=== PATIENT | male | born 1975 | race Caucasian/White ===

== ENCOUNTER 2018-06-11 15:31 | Inpatient (IN) | payer MEDICARE, MEDICAID ==
[~2018-06-11] VITALS: Ht 165.1 cm; Wt 85.6 kg
--- NOTE | 2018-06-11 15:40 | NUR ---
EKG 1530
[2018-06-11 16:14] LABS: BASOPHILS # (AUTO) 0.1 X10'3 (0-0.2); BASOPHILS % (AUTO) 0.7 % (0-1); EOSINOPHILS # (AUTO) 0.2 X10'3 (0-0.9); EOSINOPHILS % (AUTO) 1.9 % (0-6); HEMATOCRIT 48.6 % (42.0-52.0); LYMPHOCYTES # (AUTO) 2.2 X10'3 (1.1-4.8); MEAN CORPUSCULAR HGB CONC 32.9 g/dL (33.0-36.5); MEAN CORPUSCULAR VOLUME 82.1 FL (78-98); MEAN PLATELET VOLUME 9.8 FL (7.4-10.4); MONOCYTES # (AUTO) 0.9 X10'3 (0-0.9); MONOCYTES % (AUTO) 6.8 % (2-12); NEUTROPHILS # (AUTO) 9.1 X10'3 (1.8-7.7); NEUTROPHILS % (AUTO) 72.6 % (42-75); PLATELET COUNT 251 X10'3 (140-440); RED BLOOD COUNT 5.92 X10'6 (4.70-6.10); RED CELL DISTRIBUTION WIDTH 16.5 % (11.5-14.5); WHITE BLOOD COUNT 12.5 X10'3 (4.5-11.0)
[2018-06-11 16:30] LABS: ALANINE AMINOTRANSFERASE 53 U/L (12-78); ALBUMIN 3.7 G/DL (3.4-5.0); ALBUMIN/GLOBULIN RATIO 0.8 (1.1-1.5); ALKALINE PHOSPHATASE 131 IU/L (46-116); ANION GAP 10 (8-16); ASPARTATE AMINO TRANSFERASE 42 U/L (10-37); BILIRUBIN,TOTAL 0.5 MG/DL (0.1-1.0); BLOOD UREA NITROGEN 13 MG/DL (7-18); CALCIUM 8.8 MG/DL (8.5-10.1); CHLORIDE 104 MMOL/L (99-107); CREATININE 1.08 MG/DL (0.60-1.10); GLUCOSE 96 MG/DL (70-104); POTASSIUM 3.9 MMOL/L (3.5-5.1); SODIUM 140 MMOL/L (135-145); TOTAL CARBON DIOXIDE 26.1 MMOL/L (24-32); TOTAL PROTEIN 8.3 G/DL (6.4-8.2); eGFR 74 ML/MIN
[2018-06-11 16:38] LABS: PARTIAL THROMBOPLASTIN TIME 30 SECONDS (22-32); PROTHROMBIN TIME 10.3 SECONDS (9.0-12.0)
[2018-06-11] MEDS ORDERED: LEVO150T PO (19:42)
[2018-06-11] MEDS ORDERED: ALBU18HF2 INH (19:43)
[2018-06-11] MEDS ORDERED: mag hydrox/Alum hydrox/simeth 30ml oral suspension PO PRN (20:15)
[2018-06-11] MEDS ORDERED: magnesium hydroxide 30ml (MOM) UD suspension PO PRN (20:15)
[2018-06-11] MEDS ORDERED: albuterol 2.5 MG/3 ML nebule NEB PRN (20:15)
[2018-06-11] MEDS ORDERED: ondansetron/PF 4mg/2ml inj IV PRN (20:15)
[2018-06-11] MEDS ORDERED: HYDROcodone/acetaminophen 5mg/325mg tablet PO PRN (20:15)
[2018-06-11] MEDS ORDERED: acetaminophen 325mg tablet PO PRN (20:15)
[2018-06-11] MEDS: methylPREDNISolone sod succ 125mg/2ml vial IV SCH (20:53)
[2018-06-11] MEDS: levoFLOXACIN 750MG TABLET PO SCH (20:53)
[2018-06-11] MEDS ORDERED: temazepam 15mg capsule PO PRN (21:00)
[2018-06-11] MEDS: ipratropium/albuterol 3ml nebule NEB SCH (21:53)
--- NOTE | 2018-06-11 22:15 | NUR ---
Patient in room PCU 3026. I have received report from David GEORGES and had the opportunity to ask questions and assume patient care.
--- NOTE | 2018-06-11 22:25 | NUR ---
Patient arrived to room 3026B via gurney from the ER. All belongings on person. Was able to easily ambulate from gurney to bed. Patient oriented to room, call light, plan of care and all answers were answered. Tele monitor put on and vital signs stable. No complaints of chest pain or any pain.
[2018-06-11 22:30] VITALS: BP 142/79
[2018-06-12 02:00] VITALS: BP 105/65
[2018-06-12] MEDS: ipratropium/albuterol 3ml nebule NEB SCH ×4 (03:42→20:27)
[2018-06-12 04:46] LABS: BASOPHILS % (AUTO) 0.3 % (0-1); EOSINOPHILS # (AUTO) 0.1 X10'3 (0-0.9); EOSINOPHILS % (AUTO) 1.3 % (0-6); HEMATOCRIT 49.3 % (42.0-52.0); HEMOGLOBIN 16.4 g/dl (14.0-17.9); LYMPHOCYTES # (AUTO) 0.8 X10'3 (1.1-4.8); LYMPHOCYTES % (AUTO) 9.5 % (21-51); MEAN CORPUSCULAR HEMOGLOBIN 27.3 PG (27.0-31.0); MEAN CORPUSCULAR HGB CONC 33.3 g/dL (33.0-36.5); MEAN CORPUSCULAR VOLUME 81.8 FL (78-98); MEAN PLATELET VOLUME 10.5 FL (7.4-10.4); MONOCYTES # (AUTO) 0.1 X10'3 (0-0.9); MONOCYTES % (AUTO) 1.1 % (2-12); NEUTROPHILS # (AUTO) 7.4 X10'3 (1.8-7.7); NEUTROPHILS % (AUTO) 87.8 % (42-75); PLATELET COUNT 228 X10'3 (140-440); RED BLOOD COUNT 6.02 X10'6 (4.70-6.10); RED CELL DISTRIBUTION WIDTH 16.7 % (11.5-14.5); WHITE BLOOD COUNT 8.4 X10'3 (4.5-11.0)
[2018-06-12 04:58] LABS: ALANINE AMINOTRANSFERASE 41 U/L (12-78); ALBUMIN 3.5 G/DL (3.4-5.0); ALBUMIN/GLOBULIN RATIO 0.8 (1.1-1.5); ALKALINE PHOSPHATASE 122 IU/L (46-116); ANION GAP 10 (8-16); ASPARTATE AMINO TRANSFERASE 28 U/L (10-37); BILIRUBIN,TOTAL 0.6 MG/DL (0.1-1.0); BLOOD UREA NITROGEN 12 MG/DL (7-18); BUN/CREATININE RATIO 10.4 (5.4-32.0); CALCIUM 9.3 MG/DL (8.5-10.1); CHLORIDE 106 MMOL/L (99-107); CREATININE 1.15 MG/DL (0.60-1.10); GLUCOSE 159 MG/DL (70-104); POTASSIUM 4.4 MMOL/L (3.5-5.1); SODIUM 141 MMOL/L (135-145); TOTAL CARBON DIOXIDE 25.4 MMOL/L (24-32); TOTAL PROTEIN 8.1 G/DL (6.4-8.2); eGFR 69 ML/MIN
[2018-06-12 06:00] VITALS: BP 117/66
--- NOTE | 2018-06-12 06:15 | NUR ---
Problems reprioritized. Patient report given, questions answered & plan of care reviewed with Alejandra GEORGES.
[2018-06-12 06:21] LABS: LARGE PLATELETS FEW; PLATELET ESTIMATE NORMAL
--- NOTE | 2018-06-12 06:48 | NUR ---
Patient in room PCU 3026. I have received report from Karen GEORGES and had the opportunity to ask questions and assume patient care.
[2018-06-12] MEDS: methylPREDNISolone sod succ 125mg/2ml vial IV SCH ×3 (07:31→22:24)
[2018-06-12] MEDS: levoTHYROXINE 75mcg tablet PO SCH (07:31)
[2018-06-12 11:00] VITALS: BP 121/59
[2018-06-12] MEDS: levoFLOXACIN 750MG TABLET PO SCH (11:24)
--- NOTE | 2018-06-12 13:32 | NUR ---
O2 Sat at rest on room air:84 % If below 89%: Recovery O2 Sat at rest on 3 LPM:92%:___% via nasal cannula. No further documentation is necessary.
[2018-06-12 15:00] VITALS: BP 118/57
[2018-06-12] MEDS: acetaminophen 325mg tablet PO PRN ×2 (16:27→22:32)
--- NOTE | 2018-06-12 18:16 | NUR ---
Problems reprioritized. Patient report given, questions answered & plan of care reviewed with Karen GEORGES.
--- NOTE | 2018-06-12 18:23 | NUR ---
Problems reprioritized. Patient report given, questions answered & plan of care reviewed with Karen GEORGES.
[2018-06-12 19:00] VITALS: BP 120/75
[2018-06-12] MEDS: lactobacillus rhamnosus 10,000 MMU CELLS/CAPSULE PO SCH (22:25)
[2018-06-12 23:00] VITALS: BP 114/60
[2018-06-13] MEDS: ipratropium/albuterol 3ml nebule NEB SCH ×4 (03:00→20:58)
[2018-06-13 05:55] LABS: BASOPHILS % (AUTO) 0.1 % (0-1); EOSINOPHILS # (AUTO) 0.2 X10'3 (0-0.9); EOSINOPHILS % (AUTO) 1.1 % (0-6); HEMATOCRIT 44.5 % (42.0-52.0); HEMOGLOBIN 14.6 g/dl (14.0-17.9); LYMPHOCYTES # (AUTO) 1.2 X10'3 (1.1-4.8); LYMPHOCYTES % (AUTO) 6.9 % (21-51); MEAN CORPUSCULAR HEMOGLOBIN 26.9 PG (27.0-31.0); MEAN CORPUSCULAR HGB CONC 32.8 g/dL (33.0-36.5); MEAN CORPUSCULAR VOLUME 82.2 FL (78-98); MEAN PLATELET VOLUME 10.4 FL (7.4-10.4); MONOCYTES # (AUTO) 0.4 X10'3 (0-0.9); MONOCYTES % (AUTO) 2.5 % (2-12); NEUTROPHILS # (AUTO) 15.4 X10'3 (1.8-7.7); NEUTROPHILS % (AUTO) 89.4 % (42-75); PLATELET COUNT 240 X10'3 (140-440); RED BLOOD COUNT 5.42 X10'6 (4.70-6.10); RED CELL DISTRIBUTION WIDTH 17.4 % (11.5-14.5); WHITE BLOOD COUNT 17.2 X10'3 (4.5-11.0)
[2018-06-13 06:00] VITALS: BP 106/66
[2018-06-13 06:20] LABS: ALBUMIN 3.2 G/DL (3.4-5.0); ANION GAP 12 (8-16); BLOOD UREA NITROGEN 19 MG/DL (7-18); BUN/CREATININE RATIO 17.1 (5.4-32.0); CALCIUM 9.4 MG/DL (8.5-10.1); CHLORIDE 104 MMOL/L (99-107); CREATININE 1.11 MG/DL (0.60-1.10); GLUCOSE 158 MG/DL (70-104); POTASSIUM 4.6 MMOL/L (3.5-5.1); SODIUM 140 MMOL/L (135-145); TOTAL CARBON DIOXIDE 24.3 MMOL/L (24-32); eGFR 72 ML/MIN
[2018-06-13] MEDS: levoTHYROXINE 75mcg tablet PO SCH (08:09)
[2018-06-13] MEDS: lactobacillus rhamnosus 10,000 MMU CELLS/CAPSULE PO SCH ×2 (08:09→21:43)
[2018-06-13] MEDS: methylPREDNISolone sod succ 125mg/2ml vial IV SCH ×3 (08:10→21:43)
[2018-06-13 11:00] VITALS: BP 107/71
[2018-06-13] MEDS: levoFLOXACIN 750MG TABLET PO SCH (12:15)
--- NOTE | 2018-06-13 18:27 | NUR ---
Problems reprioritized. Patient report given, questions answered & plan of care reviewed with JOSÉ MANUEL Steve.
[2018-06-13 19:00] VITALS: BP 124/75
[2018-06-13 23:00] VITALS: BP 112/69
[2018-06-14 03:00] VITALS: BP 109/59
[2018-06-14] MEDS: ipratropium/albuterol 3ml nebule NEB SCH ×4 (03:00→20:30)
[2018-06-14 06:04] LABS: BASOPHILS % (AUTO) 0.1 % (0-1); EOSINOPHILS # (AUTO) 0.2 X10'3 (0-0.9); EOSINOPHILS % (AUTO) 1.2 % (0-6); HEMATOCRIT 47.1 % (42.0-52.0); HEMOGLOBIN 15.4 g/dl (14.0-17.9); LYMPHOCYTES # (AUTO) 1.3 X10'3 (1.1-4.8); LYMPHOCYTES % (AUTO) 6.6 % (21-51); MEAN CORPUSCULAR HGB CONC 32.6 g/dL (33.0-36.5); MEAN CORPUSCULAR VOLUME 82.8 FL (78-98); MEAN PLATELET VOLUME 9.9 FL (7.4-10.4); MONOCYTES # (AUTO) 0.7 X10'3 (0-0.9); MONOCYTES % (AUTO) 3.5 % (2-12); NEUTROPHILS % (AUTO) 88.6 % (42-75); PLATELET COUNT 259 X10'3 (140-440); RED BLOOD COUNT 5.69 X10'6 (4.70-6.10); RED CELL DISTRIBUTION WIDTH 17.4 % (11.5-14.5); WHITE BLOOD COUNT 19.2 X10'3 (4.5-11.0)
--- NOTE | 2018-06-14 06:10 | NUR ---
Patient in room PCU 3024A. I have received report from Wili Del Real, and had the opportunity to ask questions and assume patient care.
[2018-06-14 06:21] LABS: ALBUMIN 3.2 G/DL (3.4-5.0); ANION GAP 9 (8-16); BLOOD UREA NITROGEN 19 MG/DL (7-18); CALCIUM 9.6 MG/DL (8.5-10.1); CHLORIDE 106 MMOL/L (99-107); GLUCOSE 147 MG/DL (70-104); POTASSIUM 4.3 MMOL/L (3.5-5.1); SODIUM 143 MMOL/L (135-145); TOTAL CARBON DIOXIDE 27.7 MMOL/L (24-32); eGFR 81 ML/MIN
--- NOTE | 2018-06-14 06:44 | NUR ---
Problems reprioritized. Patient report given, questions answered & plan of care reviewed with JOSÉ MANUEL Ram
[2018-06-14] MEDS: levoTHYROXINE 75mcg tablet PO SCH (08:13)
[2018-06-14] MEDS: methylPREDNISolone sod succ 125mg/2ml vial IV SCH ×2 (08:13→19:32)
[2018-06-14] MEDS: lactobacillus rhamnosus 10,000 MMU CELLS/CAPSULE PO SCH ×2 (08:13→19:32)
[2018-06-14 11:00] VITALS: BP 127/56
[2018-06-14] MEDS: levoFLOXACIN 750MG TABLET PO SCH (11:52)
[2018-06-14 15:00] VITALS: BP 115/59
--- NOTE | 2018-06-14 18:14 | NUR ---
Orientee documentation: I have reviewed and agree with all interventions, assessments performed and documented by JOSÉ MANUEL Slater.
--- NOTE | 2018-06-14 18:14 | NUR ---
Problems reprioritized. Patient report given, questions answered & plan of care reviewed with JOSÉ MANUEL Urena.
[2018-06-14 19:00] VITALS: BP 105/75
[2018-06-14 23:00] VITALS: BP 99/55
[2018-06-15] MEDS: ipratropium/albuterol 3ml nebule NEB SCH ×3 (02:54→15:00)
[2018-06-15 03:00] VITALS: BP 107/68
[2018-06-15 05:39] LABS: ALBUMIN 3.1 G/DL (3.4-5.0); ANION GAP 9 (8-16); BLOOD UREA NITROGEN 20 MG/DL (7-18); BUN/CREATININE RATIO 20.6 (5.4-32.0); CALCIUM 9.2 MG/DL (8.5-10.1); CHLORIDE 105 MMOL/L (99-107); CREATININE 0.97 MG/DL (0.60-1.10); GLUCOSE 147 MG/DL (70-104); POTASSIUM 4.1 MMOL/L (3.5-5.1); SODIUM 142 MMOL/L (135-145); TOTAL CARBON DIOXIDE 27.7 MMOL/L (24-32); eGFR 84 ML/MIN
[2018-06-15 05:45] LABS: BASOPHILS % (AUTO) 0.1 % (0-1); EOSINOPHILS % (AUTO) 0.1 % (0-6); HEMATOCRIT 48.6 % (42.0-52.0); HEMOGLOBIN 15.9 g/dl (14.0-17.9); LYMPHOCYTES # (AUTO) 1.5 X10'3 (1.1-4.8); LYMPHOCYTES % (AUTO) 9.4 % (21-51); MEAN CORPUSCULAR HGB CONC 32.7 g/dL (33.0-36.5); MEAN CORPUSCULAR VOLUME 82.8 FL (78-98); MEAN PLATELET VOLUME 10.5 FL (7.4-10.4); MONOCYTES # (AUTO) 0.6 X10'3 (0-0.9); NEUTROPHILS # (AUTO) 13.4 X10'3 (1.8-7.7); NEUTROPHILS % (AUTO) 86.4 % (42-75); PLATELET COUNT 261 X10'3 (140-440); RED BLOOD COUNT 5.87 X10'6 (4.70-6.10); WHITE BLOOD COUNT 15.5 X10'3 (4.5-11.0)
--- NOTE | 2018-06-15 06:20 | NUR ---
Patient in room PCU 3026. I have received report from JOSÉ MANUEL Urena and had the opportunity to ask questions and assume patient care.
[2018-06-15 07:00] VITALS: BP 122/79
[2018-06-15] MEDS: levoTHYROXINE 75mcg tablet PO SCH (08:01)
[2018-06-15] MEDS: lactobacillus rhamnosus 10,000 MMU CELLS/CAPSULE PO SCH (08:01)
[2018-06-15] MEDS: methylPREDNISolone sod succ 125mg/2ml vial IV SCH (08:02)
[2018-06-15] MEDS: levoFLOXACIN 750MG TABLET PO SCH (10:15)
[2018-06-15 11:00] VITALS: BP 125/81
--- NOTE | 2018-06-15 14:30 | NUR ---
O2 Sat at rest on room air:__82_% If below 89%: Recovery O2 Sat at rest on _3__LPM:__91_%:___% via NC (mask/nasal cannula, etc..) No further documentation is necessary. If O2 Sat did not drop below 89% on room air,ambulate patient on room air. O2 Sat while ambulating on room air:___% Recovery O2 Sat while ambulating on ___LPM:___% No further documentation is necessary. If patient does not drop below 89% while ambulating, he/she does not qualify for home O2.
[2018-06-15 15:00] VITALS: BP 118/80
[2018-06-15] MEDS ORDERED: LEVO750T46 PO (15:10)
[2018-06-15] MEDS ORDERED: LACT1CAP26 PO (15:10)
[2018-06-15] MEDS ORDERED: IPRA3AMP9 NEB (15:10)
[2018-06-15] MEDS ORDERED: COMP1EAC88 INH (15:11)
--- NOTE | 2018-06-15 18:10 | NUR ---
Discharge education, including medications, S&S worsening condition & importance of following up with PCP reviewed with pt. Pt had the opportunity to ask questions. Pt has appt with [facility] 06/23/18 at 1035. IV removed, cannula intact. All pt belongings, including cell phone, gathered up and sent with pt. Pt's home oxygen tanks transported with pt. Pt wheeled down to lobby to meet private vehicle.
== END 2018-06-15 18:10 | disposition home or self-care (01) | DRG 197 ==
LOC: ER 15:33 → ED HOLD 20:14 → PCU 3S 22:50
PROVIDERS: ADMIT Hospitalist; ATTEND Internal Medicine
DX: J84.82 Adult pulmonary Langerhans cell histiocytosis (principal); J44.1 Chronic obstructive pulmonary disease with (acute) exacerbation; J96.11 Chronic respiratory failure with hypoxia; J84.10 Pulmonary fibrosis, unspecified; F15.90 Other stimulant use, unspecified, uncomplicated; E87.70 Fluid overload, unspecified; E03.9 Hypothyroidism, unspecified; Z99.81 Dependence on supplemental oxygen; Z79.890 Hormone replacement therapy; Z72.0 Tobacco use
CPT/HCPCS: 36415; 71045; 80048; 80053; 84484; 85025; 85610; 85730; 87070; 93005; 93306; 94640; 94760; 99285; G0378; J2930

== ENCOUNTER 2018-08-07 11:18 | Emergency (ER) | payer MEDICARE ==
[~2018-08-07] VITALS: Ht 167.6 cm; Wt 9.1 kg
[~2018-08-07 11:18] MED LIST: ALBU18HF2 INH; COMP1EAC88 INH; IPRA3AMP9 NEB; LACT1CAP26 PO; LEVO150T PO; LEVO750T46 PO
--- NOTE | 2018-08-07 11:23 | NUR ---
PATIENT WHENT TO ROOM 19 AFTER REGISTERING FOR SOB AND WHEN WINTER PCT STARTED TO DO EKG PATIENT REFUSED TO HAVE IT DONE STATING HE HAS COPD NOT HEART PROBLEMS. EDUCATED ON NEED FOR EKG BUT PATIENT REFUSED
[2018-08-07 11:43] VITALS: BP 117/70
--- NOTE | 2018-08-07 11:46 | NUR ---
pt was in room 19 CO SOB. went to go EKG on pt. Pt stated "I have a chronic respiratory issue. I'm short of breathe because of my lungs, it has nothing to do with my heart" he said he doesnt think he needs an EKG since it was just repiratory. CRN notified
[2018-08-07] MEDS ORDERED: ipratropium/albuterol 3ml nebule NEB ONE (12:55)
[2018-08-07] MEDS ORDERED: PRED50TA PO (13:54)
[2018-08-07] MEDS ORDERED: LEVO750T21 PO (13:54)
== END 2018-08-07 14:03 | disposition home or self-care (01) ==
LOC: ER 11:20
DX: C96.6 Unifocal Langerhans-cell histiocytosis (principal); Z79.899 Other long term (current) drug therapy
CPT/HCPCS: 71046; 94640; 94760; 99283

== ENCOUNTER 2018-11-26 12:15 | Inpatient (IN) | payer MEDICAID, MEDICARE, OTHER ==
[~2018-11-26] VITALS: Ht 167.6 cm; Wt 91.0 kg
[~2018-11-26 12:15] MED LIST changes: +PRED50TA PO
[2018-11-26 12:44] LABS: CLARITY,URINE CLEAR (Clear); COLOR,URINE STRAW (Yellow); GLUCOSE, URINE NEGATIVE (Neg); KETONES,URINE NEGATIVE (Neg); LEUKOCYTE ESTERASE ,URINE NEGATIVE (Neg); NITRITES, URINE NEGATIVE (Neg); OCCULT BLOOD,URINE NEGATIVE (Neg); PH,URINE 5.5 (4.8-8.0); PROTEIN,URINE NEGATIVE (Neg); UA COLLECTION TYPE URINAL; UROBILINOGEN,URINE 0.2 E.U/dL (0.2-1.0)
[2018-11-26 13:05] LABS: BASOPHILS # (AUTO) 0.1 X10'3 (0-0.2); BASOPHILS % (AUTO) 0.6 % (0-1); EOSINOPHILS # (AUTO) 0.3 X10'3 (0-0.9); EOSINOPHILS % (AUTO) 2.3 % (0-6); HEMATOCRIT 46.3 % (42.0-52.0); HEMOGLOBIN 15.3 g/dl (14.0-17.9); LYMPHOCYTES # (AUTO) 1.2 X10'3 (1.1-4.8); LYMPHOCYTES % (AUTO) 10.6 % (21-51); MEAN CORPUSCULAR HEMOGLOBIN 27.3 PG (27.0-31.0); MEAN CORPUSCULAR HGB CONC 33.1 g/dL (33.0-36.5); MEAN CORPUSCULAR VOLUME 82.5 FL (78-98); MEAN PLATELET VOLUME 9.3 FL (7.4-10.4); MONOCYTES # (AUTO) 0.7 X10'3 (0-0.9); MONOCYTES % (AUTO) 5.8 % (2-12); NEUTROPHILS # (AUTO) 9.3 X10'3 (1.8-7.7); NEUTROPHILS % (AUTO) 80.7 % (42-75); PLATELET COUNT 205 X10'3 (140-440); RED BLOOD COUNT 5.61 X10'6 (4.70-6.10); RED CELL DISTRIBUTION WIDTH 15.6 % (11.5-14.5); WHITE BLOOD COUNT 11.5 X10'3 (4.5-11.0)
[2018-11-26] MEDS ORDERED: methylPREDNISolone sod succ 125mg/2ml vial IV ONE (13:05)
[2018-11-26] MEDS ORDERED: ipratropium/albuterol 3ml nebule NEB ONE (13:05)
[2018-11-26 13:16] LABS: ALANINE AMINOTRANSFERASE 29 U/L (12-78); ALBUMIN 3.2 G/DL (3.4-5.0); ALBUMIN/GLOBULIN RATIO 0.8 (1.1-1.5); ALKALINE PHOSPHATASE 114 IU/L (46-116); ANION GAP 10 (8-16); ASPARTATE AMINO TRANSFERASE 28 U/L (10-37); BILIRUBIN,TOTAL 1.2 MG/DL (0.1-1.0); BLOOD UREA NITROGEN 11 MG/DL (7-18); CALCIUM 8.8 MG/DL (8.5-10.1); CHLORIDE 106 MMOL/L (99-107); CREATININE 1.22 MG/DL (0.60-1.10); GLUCOSE 138 MG/DL (70-104); SODIUM 139 MMOL/L (135-145); TOTAL CARBON DIOXIDE 23.4 MMOL/L (24-32); TOTAL PROTEIN 7.2 G/DL (6.4-8.2); eGFR 65 ML/MIN
[2018-11-26 13:17] LABS: PARTIAL THROMBOPLASTIN TIME 28 SECONDS (22-32); POTASSIUM 4.1 MMOL/L (3.5-5.1)
[2018-11-26] MEDS ORDERED: benzonatate 100mg capsule PO ONE (14:30)
[2018-11-26] MEDS ORDERED: ACET-75 PO (14:37)
[2018-11-26] MEDS ORDERED: IBUP-24 PO (14:37)
[2018-11-26] MEDS ORDERED: LEVA15HF4 INH (14:38)
[2018-11-26] MEDS ORDERED: ipratropium/albuterol 3ml nebule NEB PRN (15:15)
[2018-11-26] MEDS ORDERED: ondansetron/PF 4mg/2ml inj IV PRN (15:15)
[2018-11-26] MEDS ORDERED: potassium CL 10mEq/100ml bag 100 ML IV PRN ×2 (15:15)
[2018-11-26] MEDS ORDERED: potassium Cl 20 mEq SR tablet PO PRN (15:15)
[2018-11-26 15:53] LABS: D-DIMER 0.79 MG/L FEU (0-0.50)
--- NOTE | 2018-11-26 16:20 | NUR ---
Patient in room . I have received report from JOSÉ MANUEL Islas and had the opportunity to ask questions and assume patient care.
[2018-11-26] MEDS ORDERED: acetaminophen 325mg tablet PO PRN (17:00)
[2018-11-26] MEDS ORDERED: albuterol 2.5 MG/3 ML nebule NEB PRN (17:00)
[2018-11-26] MEDS: furosemide 20 MG/2 ML vial IV SCH (17:33)
--- NOTE | 2018-11-26 18:16 | NUR ---
Problems reprioritized. Patient report given, questions answered & plan of care reviewed with JOSÉ MANUEL Peterson.
--- NOTE | 2018-11-26 18:22 | NUR ---
Patient in room MICHAEL 346. I have received report from Sona GEORGES and had the opportunity to ask questions and assume patient care.
[2018-11-26] MEDS: ipratropium/albuterol 3ml nebule NEB SCH (20:06)
[2018-11-26] MEDS: heparin, porcine 5000 units/ml vial SQ SCH (20:37)
[2018-11-26] MEDS: methylPREDNISolone sod succ/PF 40mg inj. IV SCH (20:38)
[2018-11-26] MEDS: docusate sod 100mg capsule PO SCH (20:38)
[2018-11-26 21:54] VITALS: BP 124/67
[2018-11-27] VITALS: BP 136/82
[2018-11-27] MEDS: benzonatate 100mg capsule PO PRN ×2 (02:27→10:46)
[2018-11-27] MEDS: ipratropium/albuterol 3ml nebule NEB SCH ×3 (02:29→15:00)
[2018-11-27] MEDS: ibuprofen 200mg tablet PO PRN ×2 (04:02→10:47)
[2018-11-27 05:26] LABS: BASOPHILS % (AUTO) 0.1 % (0-1); EOSINOPHILS % (AUTO) 0 % (0-6); HEMOGLOBIN 15.6 g/dl (14.0-17.9); LYMPHOCYTES # (AUTO) 0.6 X10'3 (1.1-4.8); LYMPHOCYTES % (AUTO) 6.8 % (21-51); MEAN CORPUSCULAR HEMOGLOBIN 26.7 PG (27.0-31.0); MEAN CORPUSCULAR HGB CONC 32.5 g/dL (33.0-36.5); MEAN CORPUSCULAR VOLUME 82.2 FL (78-98); MEAN PLATELET VOLUME 9.6 FL (7.4-10.4); MONOCYTES # (AUTO) 0.3 X10'3 (0-0.9); MONOCYTES % (AUTO) 2.8 % (2-12); NEUTROPHILS # (AUTO) 8.2 X10'3 (1.8-7.7); NEUTROPHILS % (AUTO) 90.3 % (42-75); PLATELET COUNT 205 X10'3 (140-440); RED BLOOD COUNT 5.85 X10'6 (4.70-6.10); RED CELL DISTRIBUTION WIDTH 15.3 % (11.5-14.5); WHITE BLOOD COUNT 9.1 X10'3 (4.5-11.0)
[2018-11-27 05:30] LABS: ALBUMIN 3.4 G/DL (3.4-5.0); ANION GAP 12 (8-16); BLOOD UREA NITROGEN 13 MG/DL (7-18); BUN/CREATININE RATIO 9.6 (5.4-32.0); CALCIUM 9.2 MG/DL (8.5-10.1); CHLORIDE 103 MMOL/L (99-107); CREATININE 1.36 MG/DL (0.60-1.10); GLUCOSE 209 MG/DL (70-104); POTASSIUM 3.4 MMOL/L (3.5-5.1); SODIUM 139 MMOL/L (135-145); TOTAL CARBON DIOXIDE 23.8 MMOL/L (24-32); eGFR 57 ML/MIN
--- NOTE | 2018-11-27 06:25 | NUR ---
Patient in room MICHAEL 346. I have received report from JOSÉ MANUEL Peterson and had the opportunity to ask questions and assume patient care.
--- NOTE | 2018-11-27 06:31 | NUR ---
Problems reprioritized. Patient report given, questions answered & plan of care reviewed with Sona GEORGES.
[2018-11-27 07:00] VITALS: BP_SYST 113; BP_SYST 123; BP_DIAS 68; BP_DIAS 70
[2018-11-27] MEDS ORDERED: levoTHYROXINE 75mcg tablet PO SCH (07:00)
[2018-11-27] MEDS: furosemide 20 MG/2 ML vial IV SCH (07:32)
[2018-11-27] MEDS: methylPREDNISolone sod succ/PF 40mg inj. IV SCH (07:32)
[2018-11-27] MEDS: heparin, porcine 5000 units/ml vial SQ SCH (07:33)
[2018-11-27] MEDS: docusate sod 100mg capsule PO SCH (07:33)
[2018-11-27] MEDS: potassium Cl 20 mEq SR tablet PO PRN ×2 (07:34→11:42)
[2018-11-27] MEDS ORDERED: K and/or MAG REPLACEMENT MC SCH (08:00)
[2018-11-27] MEDS ORDERED: LEVO500T2 PO (12:29)
[2018-11-27] MEDS ORDERED: FURO-150 PO (12:29)
[2018-11-27] MEDS ORDERED: PRED10TA PO (12:29)
[2018-11-27] MEDS ORDERED: predniSONE 20 mg tablet PO ONE (13:00)
--- NOTE | 2018-11-27 15:47 | NUR ---
Received dietary alert that pt is still hungry following meals. Pt seen at bedside with friends present provided with alternative write in menu and RD contact information. Pt agreeable to double protein TID, d/w dietary. Pt with SOB states he has difficult eating at times at home, discussed ways to optimize PO intake with SOB. Will continue to follow. Addendum: 11/27/18 at [address] Amended: Links added.
--- NOTE | 2018-11-27 17:30 | NUR ---
Patient discharged home via friends and taken from unit via wheelchair. Patient alert and oriented and at baseline at time of discharge. Patient stated an understanding of discharge instructions. Patient took all belongings with him including discharge instructions. Patient PIV removed with cannula intact.
== END 2018-11-27 17:40 | disposition home or self-care (01) | DRG 189 ==
LOC: ER 12:17 → SUR 3N 16:28 → CMPBEDREQ 19:39
PROVIDERS: ADMIT Internal Medicine; ATTEND Internal Medicine
DX: J96.21 Acute and chronic respiratory failure with hypoxia (principal); J44.1 Chronic obstructive pulmonary disease with (acute) exacerbation; C96.6 Unifocal Langerhans-cell histiocytosis; E23.2 Diabetes insipidus; J84.10 Pulmonary fibrosis, unspecified; E03.9 Hypothyroidism, unspecified; I27.81 Cor pulmonale (chronic); M79.89 Other specified soft tissue disorders; I27.21 Secondary pulmonary arterial hypertension; I50.9 Heart failure, unspecified; Z60.2 Problems related to living alone; N18.9 Chronic kidney disease, unspecified; F17.220 Nicotine dependence, chewing tobacco, uncomplicated; Z99.81 Dependence on supplemental oxygen; Z79.890 Hormone replacement therapy; Z79.899 Other long term (current) drug therapy
CPT/HCPCS: 36415; 71045; 80048; 80053; 81003; 83605; 83880; 84145; 85025; 85379; 85610; 85730; 87040; 87081; 93005; 94640; 94760; 96374; 99285; G0378; J1644; J1940; J2920; J2930; J7512

== ENCOUNTER 2019-01-25 16:12 | Emergency (ER) | payer MEDICAID, MEDICARE ==
[~2019-01-25] VITALS: Ht 167.6 cm; Wt 90.9 kg
[~2019-01-25 16:12] MED LIST changes: +ACET-75 PO; -ALBU18HF2 INH; -COMP1EAC88 INH; +FURO-150 PO; +IBUP-24 PO; -IPRA3AMP9 NEB; -LACT1CAP26 PO; +LEVA15HF4 INH; -LEVO750T46 PO; +PRED10TA PO; -PRED50TA PO
[2019-01-25 17:03] LABS: BASOPHILS # (AUTO) 0.1 X10'3 (0-0.2); BASOPHILS % (AUTO) 1.1 % (0-1); EOSINOPHILS # (AUTO) 0.3 X10'3 (0-0.9); EOSINOPHILS % (AUTO) 3.1 % (0-6); HEMOGLOBIN 16.4 g/dl (14.0-17.9); LYMPHOCYTES # (AUTO) 1.8 X10'3 (1.1-4.8); LYMPHOCYTES % (AUTO) 18.8 % (21-51); MEAN CORPUSCULAR HEMOGLOBIN 27.3 PG (27.0-31.0); MEAN CORPUSCULAR HGB CONC 33.4 g/dL (33.0-36.5); MEAN CORPUSCULAR VOLUME 81.7 FL (78-98); MEAN PLATELET VOLUME 8.7 FL (7.4-10.4); MONOCYTES # (AUTO) 0.9 X10'3 (0-0.9); MONOCYTES % (AUTO) 8.9 % (2-12); NEUTROPHILS # (AUTO) 6.6 X10'3 (1.8-7.7); NEUTROPHILS % (AUTO) 68.1 % (42-75); PLATELET COUNT 254 X10'3 (140-440); RED CELL DISTRIBUTION WIDTH 17.8 % (11.5-14.5); WHITE BLOOD COUNT 9.7 X10'3 (4.5-11.0)
[2019-01-25 17:17] LABS: ALANINE AMINOTRANSFERASE 26 U/L (12-78); ALBUMIN 3.4 G/DL (3.4-5.0); ALBUMIN/GLOBULIN RATIO 0.8 (1.1-1.5); ALKALINE PHOSPHATASE 109 IU/L (46-116); ANION GAP 8 (8-16); ASPARTATE AMINO TRANSFERASE 23 U/L (10-37); BILIRUBIN,TOTAL 1.1 MG/DL (0.1-1.0); BLOOD UREA NITROGEN 7 MG/DL (7-18); BUN/CREATININE RATIO 5.9 (5.4-32.0); CALCIUM 9.2 MG/DL (8.5-10.1); CHLORIDE 106 MMOL/L (99-107); CREATININE 1.18 MG/DL (0.60-1.10); GLUCOSE 165 MG/DL (70-104); LIPASE 124 U/L (73-393); SODIUM 141 MMOL/L (135-145); TOTAL CARBON DIOXIDE 27.4 MMOL/L (24-32); TOTAL PROTEIN 7.8 G/DL (6.4-8.2); eGFR 67 ML/MIN
--- NOTE | 2019-01-25 18:37 | NUR ---
ASSUMED CARE OF PATINE NO RESP DISTRESS NOTED. PT REGULARLY ON 3 LITERS OF O2 NC SATING 93 % C/O ABD PAIN TO RIGHT LOWER QUAD 8/10 CONSTANT AND CRAMPING DENIES ANY BOWEL HABITS OR NAUSEA OR VOMITING. STATES HE HAS A COUGH SOME LOWER BACK PAIN. 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
[2019-01-25 19:03] LABS: CLARITY,URINE CLEAR (Clear); COLOR,URINE YELLOW (Yellow); GLUCOSE, URINE NEGATIVE (Neg); KETONES,URINE NEGATIVE (Neg); LEUKOCYTE ESTERASE ,URINE NEGATIVE (Neg); NITRITES, URINE NEGATIVE (Neg); OCCULT BLOOD,URINE NEGATIVE (Neg); PH,URINE 5.5 (4.8-8.0); PROTEIN,URINE NEGATIVE (Neg); UROBILINOGEN,URINE 0.2 E.U/dL (0.2-1.0)
[2019-01-25 19:06] LABS: UA COLLECTION TYPE CLN CATCH MIDSTREAM
--- NOTE | 2019-01-25 20:48 | NUR ---
ULTRA SOUND COMPLETE
[2019-01-25 21:10] VITALS: BP 110/70
== END 2019-01-25 21:12 | disposition home or self-care (01) ==
LOC: ER 16:12
DX: R10.11 Right upper quadrant pain (principal); R10.33 Periumbilical pain; I50.9 Heart failure, unspecified; J44.9 Chronic obstructive pulmonary disease, unspecified; Z79.899 Other long term (current) drug therapy
CPT/HCPCS: 36415; 76700; 80053; 81003; 83690; 85025; 99284

== ENCOUNTER 2019-02-25 15:13 | Emergency (ER) | payer MEDICAID ==
[~2019-02-25] VITALS: Ht 167.6 cm; Wt 89.0 kg
[2019-02-25 16:17] LABS: BASOPHILS # (AUTO) 0.1 X10'3 (0-0.2); BASOPHILS % (AUTO) 1.3 % (0-1); EOSINOPHILS # (AUTO) 0.5 X10'3 (0-0.9); EOSINOPHILS % (AUTO) 5.2 % (0-6); HEMATOCRIT 49.5 % (42.0-52.0); HEMOGLOBIN 16.4 g/dl (14.0-17.9); LYMPHOCYTES # (AUTO) 1.7 X10'3 (1.1-4.8); LYMPHOCYTES % (AUTO) 16.3 % (21-51); MEAN CORPUSCULAR HEMOGLOBIN 27.1 PG (27.0-31.0); MEAN CORPUSCULAR HGB CONC 33.1 g/dL (33.0-36.5); MEAN CORPUSCULAR VOLUME 82.1 FL (78-98); MEAN PLATELET VOLUME 9.4 FL (7.4-10.4); MONOCYTES # (AUTO) 0.9 X10'3 (0-0.9); MONOCYTES % (AUTO) 8.8 % (2-12); NEUTROPHILS % (AUTO) 68.4 % (42-75); PLATELET COUNT 207 X10'3 (140-440); RED BLOOD COUNT 6.02 X10'6 (4.70-6.10); RED CELL DISTRIBUTION WIDTH 17.5 % (11.5-14.5); WHITE BLOOD COUNT 10.2 X10'3 (4.5-11.0)
[2019-02-25 16:20] LABS: ALANINE AMINOTRANSFERASE 22 U/L (12-78); ALBUMIN 3.5 G/DL (3.4-5.0); ALBUMIN/GLOBULIN RATIO 0.7 (1.1-1.5); ALKALINE PHOSPHATASE 117 IU/L (46-116); ANION GAP 11 (8-16); ASPARTATE AMINO TRANSFERASE 25 U/L (10-37); BILIRUBIN,TOTAL 1.9 MG/DL (0.1-1.0); BLOOD UREA NITROGEN 7 MG/DL (7-18); BUN/CREATININE RATIO 5.9 (5.4-32.0); CALCIUM 9.1 MG/DL (8.5-10.1); CHLORIDE 106 MMOL/L (99-107); CREATININE 1.19 MG/DL (0.60-1.10); GLUCOSE 138 MG/DL (70-104); POTASSIUM 3.9 MMOL/L (3.5-5.1); SODIUM 141 MMOL/L (135-145); TOTAL CARBON DIOXIDE 24.3 MMOL/L (24-32); TOTAL PROTEIN 8.2 G/DL (6.4-8.2); eGFR 66 ML/MIN
--- NOTE | 2019-02-25 18:45 | NUR ---
PT AWAITING ER PROVIDER. JUST PLACED IN ROOM 20 MIN AGO. USES 02 AT HOME AAT, CURRENTLY ON 5 LITERS AND SATS 95%. PT REPORTS HE SEES DR. ALEXANDRA AND A SPECIALIST AT [facility] (GETTING REESTABLISHED WITH THEM CURRENTLY). STATES HE HAS HAD THIS BAD COUGH FOR OVER 1 MONTH AND THAT HE IS UNABLE TO GET GOOD SLEEP D/T WAKING UP COUGHING. CP/LUNG PAIN 2 OUT OF 10 AND ONLY WHEN COUGHING. PT IS A&OX4 AND PLEASANT AND COOPERATIVE.
[2019-02-25] MEDS ORDERED: ipratropium/albuterol 3ml nebule NEB ONE (19:40)
[2019-02-25] MEDS ORDERED: levoFLOXACIN 750MG TABLET PO ONE (19:40)
[2019-02-25] MEDS ORDERED: methylPREDNISolone sod succ 125mg/2ml vial IM ONE (19:40)
--- NOTE | 2019-02-25 20:13 | NUR ---
RT at bedside for svn. sats on 5 liters 98%.
[2019-02-25 20:41] VITALS: BP 110/54
[2019-02-25] MEDS ORDERED: LEVO750T21 PO (21:02)
[2019-02-25] MEDS ORDERED: PRED20TA PO (21:02)
== END 2019-02-25 21:21 | disposition home or self-care (01) ==
LOC: ER 15:14
DX: R06.02 Shortness of breath (principal); I50.9 Heart failure, unspecified; J44.9 Chronic obstructive pulmonary disease, unspecified; Z79.899 Other long term (current) drug therapy
CPT/HCPCS: 36415; 71046; 80053; 83605; 84484; 85025; 87040; 93005; 94640; 94760; 96372; 99284; J2930

== ENCOUNTER 2019-05-21 20:56 | Emergency (ER) | payer MEDICAID, MEDICARE ==
[~2019-05-21] VITALS: Ht 167.6 cm; Wt 90.9 kg
[2019-05-21] MEDS ORDERED: ipratropium/albuterol 3ml nebule NEB ONE (21:45)
[2019-05-21 21:51] LABS: BASOPHILS # (AUTO) 0.1 X10'3 (0-0.2); BASOPHILS % (AUTO) 0.3 % (0-1); EOSINOPHILS # (AUTO) 0.1 X10'3 (0-0.9); EOSINOPHILS % (AUTO) 0.3 % (0-6); HEMATOCRIT 51.4 % (42.0-52.0); LYMPHOCYTES # (AUTO) 0.8 X10'3 (1.1-4.8); LYMPHOCYTES % (AUTO) 4.7 % (21-51); MEAN CORPUSCULAR HEMOGLOBIN 26.9 PG (27.0-31.0); MEAN CORPUSCULAR HGB CONC 33.1 g/dL (33.0-36.5); MEAN CORPUSCULAR VOLUME 81.1 FL (78-98); MEAN PLATELET VOLUME 8.9 FL (7.4-10.4); MONOCYTES # (AUTO) 0.4 X10'3 (0-0.9); MONOCYTES % (AUTO) 2.3 % (2-12); NEUTROPHILS # (AUTO) 15.3 X10'3 (1.8-7.7); NEUTROPHILS % (AUTO) 92.4 % (42-75); PLATELET COUNT 209 X10'3 (140-440); RED BLOOD COUNT 6.34 X10'6 (4.70-6.10); RED CELL DISTRIBUTION WIDTH 17.6 % (11.5-14.5); WHITE BLOOD COUNT 16.5 X10'3 (4.5-11.0)
[2019-05-21 21:53] LABS: PARTIAL THROMBOPLASTIN TIME 25 SECONDS (22-32)
[2019-05-21 21:55] LABS: ALANINE AMINOTRANSFERASE 73 U/L (12-78); ALBUMIN 3.4 G/DL (3.4-5.0); ALBUMIN/GLOBULIN RATIO 0.9 (1.1-1.5); ALKALINE PHOSPHATASE 123 IU/L (46-116); ANION GAP 8 (8-16); ASPARTATE AMINO TRANSFERASE 37 U/L (10-37); BILIRUBIN,TOTAL 1.7 MG/DL (0.1-1.0); BLOOD UREA NITROGEN 16 MG/DL (7-18); BUN/CREATININE RATIO 12.3 (5.4-32.0); CALCIUM 8.3 MG/DL (8.5-10.1); CHLORIDE 107 MMOL/L (99-107); GLUCOSE 157 MG/DL (70-104); POTASSIUM 4.4 MMOL/L (3.5-5.1); SODIUM 139 MMOL/L (135-145); TOTAL CARBON DIOXIDE 24.2 MMOL/L (24-32); eGFR 60 ML/MIN
[2019-05-21 23:11] LABS: CLARITY,URINE CLEAR (Clear); COLOR,URINE STRAW (Yellow); GLUCOSE, URINE NEGATIVE (Neg); KETONES,URINE NEGATIVE (Neg); LEUKOCYTE ESTERASE ,URINE NEGATIVE (Neg); NITRITES, URINE NEGATIVE (Neg); OCCULT BLOOD,URINE NEGATIVE (Neg); PROTEIN,URINE NEGATIVE (Neg); UA COLLECTION TYPE CLN CATCH MIDSTREAM; UROBILINOGEN,URINE 0.2 E.U/dL (0.2-1.0)
[2019-05-21] MEDS ORDERED: FURO-149 PO (23:16)
[2019-05-21] MEDS ORDERED: furosemide 10 MG/1 ML 10ml inj IV ONE (23:35)
[2019-05-21 23:45] VITALS: BP 138/73
== END 2019-05-21 23:44 | disposition home or self-care (01) ==
LOC: ER 20:56
DX: R06.02 Shortness of breath (principal); R60.0 Localized edema; R05 Cough; J84.10 Pulmonary fibrosis, unspecified; J44.9 Chronic obstructive pulmonary disease, unspecified; I50.9 Heart failure, unspecified
CPT/HCPCS: 36415; 71045; 80053; 81003; 83880; 84484; 85025; 85610; 85730; 93005; 94640; 96374; 99284; J1940; 94760